=== PATIENT | male | born 1960 | race Caucasian/White ===

== ENCOUNTER → 2020-10-18 11:04 | Outpatient (BNVA) | payer OTHER, SELFPAY | PROVIDERS: PCP Internal Medicine; Visit Provider Urology | DX: Z76.89 Persons encountering health services in other specified circumstances (principal) ==

== ENCOUNTER 2020-12-04 11:58 | Outpatient (REF) | payer OTHER, SELFPAY ==
[2020-12-04 14:47] LABS: Alanine Aminotransferase 21 U/L (0-40); Anion Gap 14 (12-20); Aspartate Amino Transferase 23 U/L (5-37); Blood Urea Nitrogen 19 mg/dL (9-16); Calcium 9.9 mg/dL (8.4-10.2); Carbon Dioxide 29 mmol/L (22-29); Chloride 96 mmol/L (96-108); Cholesterol 192 mg/dL; Estimated Glomerular Filt Rate > 60; Glucose Fasting 98 mg/dL (60-99); HDL Cholesterol 65 mg/dL; LDL Cholesterol Calculated 106 mg/dl; Potassium 4.6 mmol/L (3.3-5.1); Sodium 134 mmol/L (135-145); Triglycerides 106 mg/dL
== END 2020-12-04 11:59 | disposition home or self-care (01) ==
LOC: HO.HMGCLDS 11:58
PROVIDERS: PCP Internal Medicine; Visit Provider Internal Medicine
DX: Z00.01 Encounter for general adult medical examination with abnormal findings (principal); I10 Essential (primary) hypertension
CPT/HCPCS: 36415; 80048; 80061; 84450; 84460

== ENCOUNTER 2022-08-10 13:13 | Outpatient (REF) | payer OTHER, SELFPAY ==
[2022-08-10 13:56] LABS: MANUAL DIFF FLAG NO
[2022-08-10 14:05] LABS: Basophils Absolute Auto 0.1 X10*3/uL (0.0-0.2); Basophils Percent Auto 0.8 % (0-2); Eosinophils Absolute Auto 0.1 X10*3/uL (0.0-0.4); Hematocrit 43.1 % (42.0-52.0); Hemoglobin 14.1 g/dl (14.0-18.0); Imm Gran Abs Auto 0.07 X10*3/uL (0.00-0.03); Imm Gran Pct Auto 1.1 % (0.0-0.4); Lymphocytes Absolute Auto 1.8 X10*3/uL (1.2-4.9); Lymphocytes Percent Auto 27.2 % (20-40); Mean Corpuscular HGB Conc 32.7 g/dl (31.0-36.0); Mean Corpuscular Hemoglobin 28.3 pg (27.0-33.0); Mean Corpuscular Volume 86.5 fL (80.0-98.0); Mean Platelet Volume 10.8 fL (9.4-12.4); Monocytes Absolute Auto 0.4 X10*3/uL (0.1-1.2); Monocytes Percent Auto 6.4 % (2-11); Neutrophils Percent Auto 62.5 % (45-73); Platelet Count 228 X10*3/uL (160-400); Red Blood Count 4.98 X10*6/uL (4.60-5.80); Red Cell Distribution Width 12.5 % (11.0-16.0); White Blood Count 6.4 X10*3/uL (4.8-10.8)
[2022-08-10 15:00] LABS: Alanine Aminotransferase 17 U/L (0-40); Anion Gap 16 (12-20); Aspartate Amino Transferase 27 U/L (5-37); Blood Urea Nitrogen 21 mg/dL (9-16); Calcium 10.1 mg/dL (8.4-10.2); Carbon Dioxide 26 mmol/L (22-29); Chloride 101 mmol/L (96-108); Cholesterol 160 mg/dL; Estimated Glomerular Filt Rate 60; Glucose Fasting 88 mg/dL (60-99); HDL Cholesterol 54 mg/dL; LDL Cholesterol Calculated 91 mg/dl; Potassium 5.2 mmol/L (3.3-5.1); Sodium 138 mmol/L (135-145); Triglycerides 78 mg/dL
[2022-08-10 15:19] LABS: Vitamin D 25-OH Total 20.6 ng/mL (>30)
[2022-08-10 16:45] LABS: Folate 13.6 ng/mL (> or = 4.0); Vitamin B12 261 pg/mL (200-900)
== END 2022-08-10 13:14 | disposition home or self-care (01) ==
LOC: HO.HMGCLDS 13:13
PROVIDERS: PCP Internal Medicine; Visit Provider Internal Medicine
DX: Z00.01 Encounter for general adult medical examination with abnormal findings (principal); I10 Essential (primary) hypertension; M48.061 Spinal stenosis, lumbar region without neurogenic claudication; J44.9 Chronic obstructive pulmonary disease, unspecified; E29.1 Testicular hypofunction
CPT/HCPCS: 36415; 80048; 80061; 82306; 82607; 82746; 84450; 84460; 85025

== ENCOUNTER 2023-08-24 10:27 | Outpatient (AMB) | payer OTHER, SELFPAY ==
--- NOTE | 2023-08-24 10:30 | A.OFFPC_ITS ---
Vital Signs 08/24/23 10:33 Height 5 ft 11 in Weight 213 lb BMI 29.7 BP 152/100 H Blood Pressure Location Rt brachial Position Sitting Pulse 93 Pulse Source Pulse Oximeter Pulse Oximetry (%) 96 Oxygen Delivery Method Room Air Intake Visit Reasons: Annual PE- NEEDS PHQ9+THRIVE Allergies No Known Allergies [No Known Allergies*] Allergy (Verified 08/24/23 10:33) Medication List - Last Reconciled 08/24/23 by Jackie Ham MD albuterol sulfate 90 mcg/actuation (Ventolin HFA) 2 puffs inhalation Q6H PRN amlodipine 5 mg PO QPM buprenorphine-naloxone 8-2 mg (Suboxone) 16 mg sublingual DAILY cholecalciferol (vitamin D3) 1,250 mcg PO QWEEK 3 months fluticasone propionate 110 mcg/actuation (Flovent HFA) 1 puff PO BID hydroxyzine HCl 25 mg PO ONCE PRN ibuprofen 800 mg PO TID PRN insulin syringe-needle U-100 (BD Insulin Syringe Micro-Fine) As directed lisinopril 20 mg PO DAILY nicotine (polacrilex) 2 mg PO polyethylene glycol 3350 1 packet mixed in 8oz of fluid by mouth PO bedtime PRN; Tobacco use date assessed: 08/24/23 Fall risk assessment: 1 Fall in past year Last assessed Fall Risk: 08/24/23 Dental Screening Dental Screen Date: 08/24/23 Did you have a dental visit in the last 12 months?: No Did you have a dental problem in the last 6 months where you did not have access to dental care?: No Was dental information given to patient?: No [facility] Medical History (Updated 08/10/22 @ 12:53 by Jackie Ham MD) COPD (chronic obstructive pulmonary disease) Knee fracture, left Mild intermittent asthma Degenerative lumbar spinal stenosis Cervical spondylosis Essential hypertension Rash Cataract (lens) fragments in eye following cataract surgery, left eye H/O tinea corporis Surgical History Hx of colonoscopy with polypectomy H/O left knee surgery History of discectomy Hx of laminectomy Family History Mother Brain hemorrhage open without coma Brother Brain hemorrhage open without coma Social History Housing: Apartment Alcohol intake: former Patient Tobacco Use Status: Former Tobacco user e-Cigarette/Vaping Use: Never Used Current occupational status: disabled Cognitive needs: No Hearing needs: No Vision needs: No Questionnaire PHQ-9 Over the last 2 weeks, how often have you been bothered by any of the following problems? 1. Little interest or pleasure in doing things: not at all 2. Feeling down, depressed, or hopeless: not at all 3. Trouble falling or staying asleep, or sleeping too much: nearly every day 4. Feeling tired or having little energy: several days 5. Poor appetite or overeating: not at all 6. Feeling bad about yourself - or that you are a failure or have let yourself or your family down: not at all 7. Trouble concentrating on things, such as reading the newspaper or watching television: not at all 8. Moving or speaking so slowly that other people could have noticed. Or the opposite - being so fidgety or restless that you have been moving around a lot more than usual: not at all 9. Thoughts that you would be better off or of hurting yourself in some way: not at all Total score: 4 Depression Screening Interpretation: Negative Depression Screening Done: Yes 12405 - PHQ-9 Billing: Yes Source: Developed by Drs. Eder Alfredo, Yazmin Boone, Baljeet Del Cid and colleagues, with an educational logan from [employer]. Thrive Questionnaire Date Thrive assessed: 08/24/23 I am a: Patient What is your living situation today?: I have a steady place to live Within the past 12 months, did the food you bought not last and you didn't have the money to get more?: Never true Within the past 12 months, did you worry whether your food would run out before you got money to buy more?: Never true Do you have trouble paying for medicines?: No Do you have trouble getting transportation to medical appointments?: No Do you have trouble paying your heating and electricity bill?: No Do you have trouble taking care of your child, family member or friend?: Yes Do you have trouble with day-to-day activities such as bathing, preparing meals, shopping, managing finances, etc.?: Yes Are you currently unemployed and looking for a job?: No Are you interested in more education?: No Currently or been in a relationship where the following occur: I choose not to answer this question AUDIT C Alcohol Use Questionnaire (AUDIT-C) 1. How often do you have a drink containing alcohol?: Never 3. How often do you have six or more drinks on one occasion?: Never Total Score: 0 Score Reviewed/Action Taken: No SHELDON-7 AMB Questionnaire SHELDON-7 Date SHELDON - 7 assessed: 08/24/23 Feeling nervous, anxious, or on edge: 1 = Several days Not being able to stop or control worryin = Several days Worrying too much about different things: 1 = Several days Trouble relaxin = Several days Being so restless that it is hard to sit still: 0 = Not at all Becoming easily annoyed or irritable: 1 = Several days Feeling afraid as if something awful might happen: 0 = Not at all Total SHELDON-7 score (0-4 normal; 5-9 mild; 10-14 moderate; 15-21 severe): 5 Source: Developed by Drs. Eder Alfredo, Yazmin Boone, Baljeet Del Cid and colleagues, with an educational logan from [employer]. SHELDON-7 Assessment Billing SHELDON-7 Assessment Tool: SHELDON-7 Assessment 80509 Physical exam (Primary Care) Vital Signs: Last Vital Signs Pulse 93 08/24/23 10:33 BP 152/100 H 08/24/23 10:33 Pulse Ox 96 08/24/23 10:33 Oxygen Delivery Method Room Air 08/24/23 10:33 BMI result Body Mass Index 29.7 Tobacco/Smoking Status: Tobacco use Status Tobacco use date assessed 08/24/23 08/24/23 10:37 Patient Tobacco Use Status Former Tobacco user 08/24/23 10:37 e-Cigarette/Vaping Use Never Used 08/24/23 10:37 PHQ-9: PHQ-9 Score PHQ-9: Total score 4 08/24/23 11:22 Depression Screening Interpretation: Negative Thrive Assessment: Date of Thrive Assessment Date Thrive assessed 08/24/23 08/24/23 11:22 Currently or been in a relationship where the following occur: I choose not to answer this question Office Procedures Flu Questionnaire Does the patient have a severe egg allergy?: No Does the patient have severe life threatening allergies?: No Does the patient have a fever or illness today?: No Has the patient ever had Guillain-[place] Syndrome?: No Has the patient ever had any past reaction to a flu shot?: No Immunizations flu vacc [id number] 6mos up(PF) 60 mcg(15 mcgx4)/0.5 mL IM syringe Performing Provider: Jackie Ham MD Performing Location: [facility] Administered by: DARBY Diana on 08/24/23 11:20 Dose Route Admin Location Dispensed Lot Number Expiration Date NDC [employer] 0.5 mL IM Right Deltoid 0.5 mL [id number] 04/09/24 [id number] [employer] VIS Given Date VIS Provided VIS Publication Date 08/24/23 Single Vaccine 21 Eligibility Eligibility Date Funding Source Not [facility] Eligible 08/24/23 Private Assessment and Plan Assessment & Plan (1) Essential hypertension: Code(s): I10 - Essential (primary) hypertension (2) COPD (chronic obstructive pulmonary disease): Code(s): J44.9 - Chronic obstructive pulmonary disease, unspecified (3) Hypogonadism in male: Code(s): E29.1 - Testicular hypofunction (4) Degenerative lumbar spinal stenosis: Comment: ff'd at [facility] Code(s): M48.061 - Spinal stenosis, lumbar region without neurogenic claudication (5) Annual visit for general adult medical examination with abnormal findings: Code(s): Z00.01 - Encounter for general adult medical examination with abnormal findings (6) Needs flu shot: Code(s): Z23 - Encounter for immunization (7) COVID-19 vaccine dose declined: Code(s): Z28.21 - Immunization not carried out because of patient refusal Orders: Orders Alanine Aminotransferase Today I10 - Essential (primary) hypertension, Z00.01 - Encounter for general adult medical examination with abnormal findings, Z86.39 - Personal history of other endocrine, nutritional and metabolic disease Influenza 2025-8373 Immunization Today Z23 - Encounter for immunization Lipid Panel Today I10 - Essential (primary) hypertension, Z00.01 - Encounter for general adult medical examination with abnormal findings, Z86.39 - Personal history of other endocrine, nutritional and metabolic disease Aspartate Amino Transferase Today I10 - Essential (primary) hypertension, Z00.01 - Encounter for general adult medical examination with abnormal findings, Z86.39 - Personal history of other endocrine, nutritional and metabolic disease Basic Metabolic Panel Fasting Today I10 - Essential (primary) hypertension, Z00.01 - Encounter for general adult medical examination with abnormal findings, Z86.39 - Personal history of other endocrine, nutritional and metabolic disease Vitamin D 25-OH Total Today I10 - Essential (primary) hypertension, Z00.01 - Encounter for general adult medical examination with abnormal findings, Z86.39 - Personal history of other endocrine, nutritional and metabolic disease Medications: New amlodipine 5 mg PO QPM 90 tabs 0RF Refilled lisinopril 20 mg PO DAILY 90 tabs 1RF Coding Level of Care Code Est Pt Prev Care 40-64y(82265) Diagnoses Essential hypertension I10 COPD (chronic obstructive pulmonary disease) J44.9 Hypogonadism in male E29.1 Degenerative lumbar spinal stenosis M48.061 Annual visit for general adult medical examination with abnormal findings Z00.01 Needs flu shot Z23 COVID-19 vaccine dose declined Z28.21 Additional Codes SHELDON-7 Assessment Billing - SHELDON-7 Assessment Tool: SHELDON-7 Assessment 20336 ([id number])
[2023-08-24 10:33] VITALS: BP 152/100; PULSE 93; O2SAT 96; BMI 29.7
== END 2023-08-24 11:37 | disposition home or self-care (01) ==
PROVIDERS: Visit Provider Internal Medicine
DX: Z23 Encounter for immunization (principal)
CPT/HCPCS: 90471; 90686

== ENCOUNTER 2023-10-19 10:40 | Outpatient (REF) | payer OTHER, SELFPAY ==
[2023-10-19 13:53] LABS: Alanine Aminotransferase 17 U/L (0-40); Anion Gap 13 (12-20); Aspartate Amino Transferase 24 U/L (5-37); Blood Urea Nitrogen 17 mg/dL (9-16); Calcium 9.8 mg/dL (8.4-10.2); Carbon Dioxide 27 mmol/L (22-29); Chloride 104 mmol/L (96-108); Cholesterol 156 mg/dL (<200); Estimated Glomerular Filt Rate > 60; Glucose Fasting 116 mg/dL (60-99); HDL Cholesterol 53 mg/dL (>40); LDL Cholesterol Calculated 82 mg/dL (<100); Potassium 3.9 mmol/L (3.3-5.1); Sodium 140 mmol/L (135-145); Triglycerides 109 mg/dL (<150)
== END 2023-10-19 10:41 | disposition home or self-care (01) ==
LOC: HO.HMGCLDS 10:40
PROVIDERS: PCP Internal Medicine; Visit Provider Internal Medicine
DX: Z00.01 Encounter for general adult medical examination with abnormal findings (principal); I10 Essential (primary) hypertension; Z86.39 Personal history of other endocrine, nutritional and metabolic disease
CPT/HCPCS: 36415; 80048; 80061; 82306; 84450; 84460

== ENCOUNTER 2023-10-20 11:10 | Outpatient (AMB) | payer OTHER, SELFPAY ==
--- NOTE | 2023-10-20 11:48 | A.OFFPC_ITS ---
Vital Signs 10/20/23 11:49 Height 5 ft 11 in Weight 214 lb 8 oz BMI 29.9 BP 120/78 Blood Pressure Location Rt brachial Position Sitting Pulse 72 Pulse Source Pulse Oximeter Pulse Oximetry (%) 97 Oxygen Delivery Method Room Air Intake Visit Reasons: 1 Month F/U Intake Note: Pt is here for 1 month follow up after starting new BP medication and pt had labs done pt would like a referral for an eye MD Allergies No Known Allergies [No Known Allergies*] Allergy (Verified 10/20/23 23:58) Medication List - Last Reconciled 10/20/23 by Jackie Ham MD albuterol sulfate 90 mcg/actuation (Ventolin HFA) 2 puffs inhalation Q6H PRN amlodipine 5 mg PO QPM buprenorphine-naloxone 8-2 mg (Suboxone) 16 mg sublingual DAILY cholecalciferol (vitamin D3) 1,250 mcg PO QWEEK 3 months fluticasone propionate 110 mcg/actuation (Flovent HFA) 1 puff PO BID hydroxyzine HCl 25 mg PO ONCE PRN ibuprofen 800 mg PO TID PRN insulin syringe-needle U-100 (BD Insulin Syringe Micro-Fine) As directed lisinopril 20 mg PO DAILY nicotine 1 patch topical DAILY nicotine (polacrilex) 2 mg PO polyethylene glycol 3350 1 packet mixed in 8oz of fluid by mouth PO bedtime PRN; Tobacco use date assessed: 10/20/23 Fall risk assessment: 1 Fall in past year Last assessed Fall Risk: 10/20/23 Dental Screening Dental Screen Date: 10/20/23 Did you have a dental visit in the last 12 months?: No Did you have a dental problem in the last 6 months where you did not have access to dental care?: No Was dental information given to patient?: No HPI 1 Month F/U HPI Details 63-year-old male here today for follow-u p on his hypertension. He has been taking lisinopril 20 mg daily and added amlodipine 5 mg once a day on last visit. Patient's blood pressure has now been stable and well controlled. He denies any headaches, no chest pain, no lightheadedness or shortness of breath or swelling in extremities . Continues to smoke cigarettes, has nicotine patches at home but does not used him on regular basis . Reviewed recent prepped lab results with patient, obtained yesterday which showed elevated fasting glucose in the prediabetic range, normal lipids and vitamin-D level, normal electrolytes and renal function. [facility] Medical History History of vitamin D deficiency Hypertriglyceridemia COPD (chronic obstructive pulmonary disease) Knee fracture, left Mild intermittent asthma Degenerative lumbar spinal stenosis Cervical spondylosis Essential hypertension Rash Cataract (lens) fragments in eye following cataract surgery, left eye H/O tinea corporis Surgical History Hx of colonoscopy with polypectomy H/O left knee surgery History of discectomy Hx of laminectomy Family History Mother Brain hemorrhage open without coma Brother Brain hemorrhage open without coma Social History Housing: Apartment Alcohol intake: former Patient Tobacco Use Status: Current everyday Tobacco user Cigarettes Per Day: 8 e-Cigarette/Vaping Use: Never Used Current occupational status: disabled Cognitive needs: No Hearing needs: No Vision needs: No Questionnaire PHQ-9 Over the last 2 weeks, how often have you been bothered by any of the following problems? Depression Screening Interpretation: Negative Depression Screening Done: Yes Source: Developed by Drs. Eder Alfredo, Baljeet Freedman and colleagues, with an educational logan from [employer]. Thrive Questionnaire Date Thrive assessed: 08/24/23 SHELDON-7 AMB Questionnaire SHELDON-7 Date SHELDON - 7 assessed: 08/24/23 Source: Developed by Drs. Eder Alfredo, Baljeet Freedman and colleagues, with an educational logan from [employer]. Review of Systems Const Denies body aches, Denies fatigue, Denies fever(s), Denies headache(s) and Denies weakness Eyes Reports blurry vision ENT Reports Normal hearing present, Denies ear discharge, Denies headache(s), Denies epistaxis, Denies nasal congestion, Denies nasal discharge, Denies post nasal drip and Denies sore throat Card Denies chest pain, Denies lightheadedness, Denies palpitations and Denies dyspnea Resp Denies chest congestion, Denies cough, Denies dyspnea and Denies wheezing GI Denies abdominal pain, Denies change in bowel habits and Denies heartburn Reports erectile dysfunction Musc Reports back pain, Reports arthralgias and Reports stiffness Neuro Reports Normal hearing present, Denies headache(s) and Denies weakness Psych Denies anxiety and Denies depression Endo Denies fatigue, Denies polydipsia, Denies polyuria and Denies palpitations Wicho/Lymph Reports no additional complaints Aller/Immun Denies seasonal rhinorrhea and Denies wheezing Physical exam (Primary Care) Vital Signs: Last Vital Signs Pulse 72 10/20/23 11:49 BP 120/78 10/20/23 11:49 Pulse Ox 97 10/20/23 11:49 Oxygen Delivery Method Room Air 10/20/23 11:49 BMI result Body Mass Index 29.9 Tobacco/Smoking Status: Tobacco use Status Tobacco use date assessed 10/20/23 10/20/23 11:54 Patient Tobacco Use Status Current everyday Tobacco 10/20/23 11:54 e-Cigarette/Vaping Use Never Used 10/20/23 11:48 Depression Screening Interpretation: Negative Thrive Assessment: Date of Thrive Assessment Date Thrive assessed 08/24/23 10/20/23 11:48 Const General: cooperative, comfortable and no acute distress Orientation/consciousness: patient oriented x3 HENMT Ears: external ears normal, TM's normal bilaterally and EAC's normal General nose exam: Normal external nose present, Normal nasal mucous membranes and turbinates present and No nasal discharge present Mouth: Normal oral and palatal mucosa present, oropharynx normal and moist mucous membranes Eyes General: appearance normal, both eyes and all related structures Conjunctivae: conjunctivae normal Pupils: Equal, round and reactive pupils present EOM: EOMs intact bilaterally Neck Neck: Yes full ROM, Yes no lymphadenopathy and Yes supple Resp Effort & Inspection: normal respiratory effort and able to speak in complete sentences Auscultation: clear to auscultation bilaterally Cardio Rate: regular rate Rhythm: regular rhythm Heart sounds: S1 normal heart sound present and S2 normal heart sound present GI Other: Normal bowel sounds, nontender with no mass palpated Neuro General: patient oriented x3, gait normal, tone normal, moves all extremities, Normal light touch and pain sensation and no focal motor deficits Cranial nerves: Yes Equal, round and reactive pupils present and Yes Normal hearing present Cognition (Neuro): normal cognition Gait exam (Neuro): Normal gait present Motor exam (neuro): 5/5 motor strength present throughout Extrem General: Yes full ROM, Yes no joint enlargement, Yes no clubbing, cyanosis or edema, Yes no calf tenderness and Yes normal gait Results Reviewed Results Reviewed: SPEC : [id number] CORINE: 10/19/23 STATUS: COMP REQ : [id number] RECD: 10/19/[address]: Jackie Ham MD COMP: 10/19/23 ENTERED: 10/19/[address]: ORDERED: Met Prof Fast, AST, ALT, Lipid Panel, Vitamin D 25-OH Test Result Flag Reference Site Sodium 140 135-145 mmol/L Potassium 3.9 3.3-5.1 mmol/L CL 104 96-108 mmol/L CO2 27 22-29 mmol/L Gap 13 12-20 BUN 17 H 9-16 mg/dL Creat 1.19 0.5-1.4 mg/dL EGFR > 60 NOTE: For -[place] individuals, multiply the result by 1.210. Chronic Kidney Disease: Estimated GFR < 60 mL/min/1.73m2 Severe Kidney Disease: Estimated GFR < 15 mL/min/1.73m2 FBS 116 H 60-99 mg/dL A fasting glucose from 100-125 mg/dl is considered impaired (pre-diabetes). CA 9.8 8.4-10.2 mg/dL AST (GOT) 24 5-37 U/L ALT (GPT) 17 0-40 U/L Triglyceride 109 <150 mg/dL Desirable Triglyceride: less than 150 mg/dL Borderline High Triglyceride 150-199 mg/dL High Triglyceride: 200-499 mg/dL Very High Triglyceride: greater than or equal to 5OO mg/dL Cholesterol 156 <200 mg/dL Desirable Cholesterol: less than 200 mg/dL Borderline High Cholesterol: 200-239 mg/dL High Cholesterol: greater than 239 mg/dL LDL Calculated 82 <100 mg/dL Desirable LDL: less than 100 mg/dL Near Optimal/Above Optimal LDL: 110-129 mg/dL Borderline High LDL: 130-159 mg/dL High LDL: 160-189 mg/dL Very High LDL: greater than or equal to 190 mg/dL HDL 53 >40 mg/dL Desirable HDL: greater than 40 mg/dL Note: This HDL assay may give artificially low results in patients with liver disease. Vit D 25-OH Tot 97.0 >30 ng/mL Health Based Reference Values* < 20 ng/mL Deficient 20-30 ng/mL Insufficient > 30 ng/mL Sufficient Assessment and Plan Assessment & Plan (1) Essential hypertension: Code(s): I10 - Essential (primary) hypertension Plan: Blood pressure at goal of less than 130/80. Continue with lisinopril and amlodipine. Reinforced importance of following a low sodium diet, getting regular exercise, and lowering stress levels. And again your advised to quit smoking (2) Hypertriglyceridemia: Code(s): E78.1 - Pure hyperglyceridemia Plan: Latest fasting labs showed normal lipid levels including triglycerides. (3) History of vitamin D deficiency: Code(s): Z86.39 - Personal history of other endocrine, nutritional and metabolic disease Plan: Latest labs showed vitamin-D now within normal limits. Advised patient to finished taking his vitamin-D 3 prescription given on last visit (4) Blurry vision, bilateral: Code(s): H53.8 - Other visual disturbances Plan: Patient advised to call insurance to see where he can go for his routine eye exam. No referrals needed from PCP Orders: Orders Alanine Aminotransferase 06/11/24 E78.1 - Pure hyperglyceridemia, I10 - Essential (primary) hypertension, Z86.39 - Personal history of other endocrine, nutritional and metabolic disease Aspartate Amino Transferase 06/11/24 E78.1 - Pure hyperglyceridemia, I10 - Essential (primary) hypertension, Z86.39 - Personal history of other endocrine, nutritional and metabolic disease Basic Metabolic Panel Fasting 06/11/24 E78.1 - Pure hyperglyceridemia, I10 - Essential (primary) hypertension, Z86.39 - Personal history of other endocrine, nutritional and metabolic disease Lipid Panel 06/11/24 E78.1 - Pure hyperglyceridemia, I10 - Essential (primary) hypertension, Z86.39 - Personal history of other endocrine, nutritional and metabolic disease Vitamin D 25-OH Total 06/11/24 E78.1 - Pure hyperglyceridemia, I10 - Essential (primary) hypertension, Z86.39 - Personal history of other endocrine, nutritional and metabolic disease PSA,Total (Free>4and<10) 06/11/24 E78.1 - Pure hyperglyceridemia, I10 - Essential (primary) hypertension, Z86.39 - Personal history of other endocrine, nutritional and metabolic disease Medications: Refilled amlodipine 5 mg PO QPM 90 tabs 3RF albuterol sulfate 90 mcg/actuation (Ventolin HFA) 2 puffs inhalation Q6H PRN 18 ea 1RF for wheezing lisinopril 20 mg PO DAILY 90 tabs 3RF Discontinued cholecalciferol (vitamin D3) Discontinued Reason: Doctor's Order 1,250 mcg PO QWEEK 3 months 13 caps 0RF E55.9 - Vitamin D deficiency, unspecified Coding Level of Care Code Est Pt Level 3 (01263) Diagnoses Essential hypertension I10 Hypertriglyceridemia E78.1 History of vitamin D deficiency Z86.39 Blurry vision, bilateral H53.8
[2023-10-20 11:49] VITALS: BP 120/78; PULSE 72; O2SAT 97; BMI 29.9
== END 2023-10-20 12:22 | disposition home or self-care (01) ==
PROVIDERS: PCP Internal Medicine; Visit Provider Internal Medicine
DX: I10 Essential (primary) hypertension (principal); E78.1 Pure hyperglyceridemia; Z86.39 Personal history of other endocrine, nutritional and metabolic disease; H53.8 Other visual disturbances
CPT/HCPCS: 99213